=== PATIENT | male | born 1960 | race Caucasian/White ===

== ENCOUNTER 2017-10-27 10:22 | Emergency (ER) | payer BC ==
[~2017-10-27] VITALS: Ht 182.9 cm; Wt 90.7 kg
[~2017-10-27 10:22] MED LIST: ASPIRIN EC81 M1 PO; DILTIAZEM 24HR120 MG PO; DULCOLAX10 M1 RC; PROPAFENONE HC PO
--- NOTE | 2017-10-27 11:08 | ED GI/GU/ABDOMINAL COMPLAINT ---
History of Present Illness General Chief Complaint: General Adult Stated Complaint: RECTAL BLEEDING Source: patient Exam Limitations: no limitations Vital Signs & Intake/Output Vital Signs & Intake/Output Vital Signs Date Time Temp Pulse Resp B/P B/P Pulse O2 O2 Flow FiO2 Mean Ox Delivery Rate 10/27 1233 70 20 142/71 98 10/27 1206 97.5 73 18 127/81 97 10/27 1026 97.7 94 18 151/87 95 Room Air Allergies Coded Allergies: No Known Allergies (04/08/16) Reconcile Medications Aspirin (Ecotrin*) 81 MG TABLET.DR 1 TAB PO DAILY CARDIAC HEALTH (Reported) Bisacodyl (Dulcolax) 10 MG SUPP.RECT 1 SUP RC DAILY CONSTIPATION Diltiazem HCl (Diltiazem 24HR ER) 120 MG CAP.ER.24H 1 TAB PO DAILY AFIB ( Reported) Propafenone HCl (Propafenone HCl ER) 425 MG CAP.ER.12H 1 TAB PO TWICE DAILY AFIB (Reported) Triage Note: PT STATES THAT HE HAS HAD 10 EPISODES OF BLOOD IN STOOL SINCE YESTERDAY, STATES THAT BLOOD WAS RED YESTERDAY BUT TODAY ITS DARKER , DENIES ABD CRAMPING , HAS NO PAIN AT ALL. PT STATES THAT HE GOOGLED AND "STATES HE THINKS HE HAS STAGE 3 COLON CANCER."DENIES N/V. Triage Nurses Notes Reviewed? yes Onset: Gradual Duration: day(s): Timing: recent history Quality/Severity: moderate HPI: 56yo male with hx of afib on ASA 325mg presents to ED complaining of rectal bleeding beginning yesterday. Patient states that he had the urge to go to the bathroom and when he had a bowel movement that appeared to be almost entirely bright red blood. Throughout the day patient had darker red tinged bowel movements. Symptoms are persistent today. Patient states he has had blood in his bowel movements in the past however never for this duration of time. Patient had a colonoscopy when he was 52 years old, there is no abnormality detected at that time. Patient is worried about stage III colon cancer, he has no family history of GI malignancy. The patient is on a low-carb diet and reports mild constipation chronically, hard stools, intermittent straining with bowel movements. He denies diarrhea, abdominal pain, urinary symptoms, fevers, chills, nausea, vomiting, presyncope, lightheadedness. (Keren Agrawal) Past History Travel History Traveled to [place] past 21 day No Medical History Any Pertinent Medical History? see below for history Neurological: NONE EENT: NONE Cardiovascular: AFIB Respiratory: SLEEP APNEA Gastrointestinal: NONE Hepatic: NONE Renal: NONE Musculoskeletal: NONE Psychiatric: NONE Endocrine: NONE Blood Disorders: NONE Cancer(s): NONE Surgical History Surgical History: laparoscopic hernia repair Psychosocial History What is your primary language [place] Island[place] Tobacco Use: Never used ETOH Use: denies use Illicit Drug Use: denies illicit drug use Family History Hx Contributory? No (Keren Agraawl) Review of Systems Review of Systems Constitutional: Reports: no symptoms. EENTM: Reports: no symptoms. Respiratory: Reports: no symptoms. Cardiovascular: Reports: no symptoms. GI: Reports: see HPI. Genitourinary: Reports: no symptoms. Musculoskeletal: Reports: no symptoms. Skin: Reports: no symptoms. Neurological/Psychological: Reports: no symptoms. Hematologic/Endocrine: Reports: no symptoms. Immunologic/Allergic: Reports: no symptoms. All Other Systems: Reviewed and Negative (Keren Agrawal) Physical Exam Physical Exam General Appearance: well developed/nourished, no apparent distress, alert, awake Head: atraumatic, normal appearance Eyes: Bilateral: normal appearance. Ears, Nose, Throat, Mouth: hearing grossly normal Neck: normal inspection, supple, full range of motion Respiratory: normal breath sounds, no respiratory distress, lungs clear Cardiovascular: regular rate/rhythm Gastrointestinal: normal bowel sounds, soft, non-tender, no organomegaly Rectal: normal inspection, heme positive stool, deep red colored stool, no massess or fluctuance palpated Back: normal inspection, normal range of motion Extremities: normal range of motion Neurologic/Psych: awake, alert, oriented x 3 Skin: intact, normal color, warm/dry Core Measures ACS in differential dx? No Sepsis Present: No Sepsis Focused Exam Completed? No (Keren Agrawal) Progress Differential Diagnosis: bowel obstruction, gastritis, hernia, hemorrhoids, peptic ulcer, PUD/GERD, colitis, malignancy, anal fissure Plan of Care: Orders Procedure Date/time Status PARTIAL THROMBOPLASTIN TIME 10/27 1031 Complete PROTHROMBIN TIME 10/27 1031 Complete LACTIC ACID 10/27 1031 Complete COMPREHENSIVE METABOLIC PANEL 10/27 1031 Complete CBC WITHOUT DIFFERENTIAL 10/27 1031 Complete TYPE & SCREEN (NOT X-MATCH) 10/27 1031 Complete Laboratory Tests 10/27/17 1120: Anion Gap 9, Estimated GFR > 60, BUN/Creatinine Ratio 27.1 H, Glucose 142 H, Lactic Acid 1.6, Calcium 9.5, Total Bilirubin 0.5, AST 11 L, ALT 17 L, Alkaline Phosphatase 53, Total Protein 6.5, Albumin 4.0, Globulin 2.5, Albumin/ Globulin Ratio 1.6, PT 11.7, INR 1.07, APTT 35, CBC w Diff NO MAN DIFF REQ, RBC 4.15 L, MCV 93.5, MCH 32.3 H, MCHC 34.6, RDW 13.2, MPV 8.2, Gran % 69.1, Lymphocytes % 22.4, Monocytes % 6.8, Eosinophils % 1.5, Basophils % 0.2, Absolute Granulocytes 4.1, Absolute Lymphocytes 1.3, Absolute Monocytes 0.4, Absolute Eosinophils 0.1, Absolute Basophils 0 Patient's stool is guaiac-positive, no external hemorrhoids detected. The patient has no abdominal tenderness, vital signs are stable, he is nontoxic appearing. No acute anemia or blood loss. Patient sitting comfortably in stretcher. Given no abdominal tenderness, patient afebrile CT imaging deferred at this time. Patient recommended to follow up with a absorption plant operator helper for further evaluation regarding his rectal bleeding. He will increase fiber in diet until he can follow-up with gastroenterology. The patient was given strict return precautions. The patient agrees with the plan of care. The patient was discussed with Dr. Traore who agrees with this plan. Initial ED EKG: none (Love SANTO,Keren Gatica) Departure Departure Disposition: HOME OR SELF CARE Condition: Stable Clinical Impression Primary Impression: Rectal bleeding Referrals: Merly VÁSQUEZ,David Harper (PCP/Family) Additional Instructions: Follow-up with her absorption plant operator helper, call the office to make an appointment for this week. With any worsening symptoms such as feeling faint, passing out, abdominal pain, fevers, vomiting, worsening bleeding please return to the emergency department. Increase fiber in your diet, you may try fiber supplement such as Metamucil or Benefiber. Please note that there might be incidental findings in your evaluation that are unrelated to the current emergency department visit. Please notify your primary care doctor about this emergency department visit in order to obtain and review all of the testing performed so that these incidental findings can be monitored as needed. If you had an x-ray performed, please understand that some fractures may not be seen on the initial set of x-rays. If your symptoms persist you might need a repeat set of x-rays to check for such a fracture. If you had a laceration evaluated, please understand that foreign bodies such as glass or wood may not be visible to the naked eye or on plain x-rays. If the wound becomes red, swollen, increasingly more painful or if there is any drainage from the wound, please have it reevaluated by a physician for the possibility of a retained foreign body. If you're unable to follow up as outlined in the discharge instructions please return to the emergency department. Thank you for choosing the [facility] Emergency Department for your care. It was a pleasure to serve you today. Departure Forms: Customer Survey General Discharge Information (Love SANTO,Keren Gatica) PA/LEATHER DRIER Co-Sign Statement Statement: ED Attending supervision documentation- [] I saw and evaluated the patient. I have also reviewed all the pertinent lab results and diagnostic results. I agree with the findings and the plan of care as documented in the PA's/LEATHER DRIER's documentation. [X] I have reviewed the ED Record and agree with the PA's/LEATHER DRIER's documentation. [] Additions or exceptions (if any) to the PAs/LEATHER DRIER's note and plan are summarized below: [] (Eugenie VÁSQUEZ,Tip Lagunas)
[2017-10-27 11:43] LABS: ABSOLUTE BASOPHIL COUNT 0 /CUMM (0.0-0.2); ABSOLUTE EOSINOPHIL COUNT 0.1 /CUMM (0.0-0.7); ABSOLUTE GRANULOCYTE CT 4.1 /CUMM (1.4-6.5); ABSOLUTE LYMPH COUNT 1.3 /CUMM (1.2-3.4); ABSOLUTE MONOCYTE COUNT 0.4 /CUMM (0.10-0.60); BASOPHIL % 0.2 % (0.0-2.0); EOSINOPHIL % 1.5 % (0-5); GRANULOCYTE % 69.1 % (42.2-75.2); HEMATOCRIT 38.8 % (42-52); MEAN CORPUSCULAR HGB 32.3 PG (27.0-31.0); MEAN CORPUSCULAR HGB CONC 34.6 G/DL (33.0-37.0); MEAN CORPUSCULAR VOLUME 93.5 FL (80.0-94.0); MEAN PLATELET VOLUME 8.2 FL (7.4-10.4); PLATELET COUNT 200 /CUMM (130-400); RBC DISTRIBUTION WIDTH 13.2 % (11.5-14.5); RED BLOOD CELL CT 4.15 /CUMM (4.70-6.10)
[2017-10-27 11:45] LABS: PT 11.7 SEC (9.4-12.5); PTT 35 SEC (25-37)
[2017-10-27 12:33] VITALS: BP 142/71
== END 2017-10-27 12:34 ==
LOC: ERH 10:22
PROVIDERS: Physician Assistant Medical
DX: K62.5 Hemorrhage of anus and rectum (principal)